=== PATIENT | male | born 1945 | race Caucasian/White ===

== ENCOUNTER → 2021-02-18 15:33 | Outpatient (ROUT) | payer MEDICARE, SELFPAY ==
[2021-02-18 16:14] LABS: Add Manual Diff / Slide Review NO; Basophils Absolute Auto 100 /uL (0-100); Basophils Percent Auto 1.2 % (0-2); Eosinophils Absolute Auto 100 /uL (0-450); Eosinophils Percent Auto 1.6 % (2-4); Hematocrit 46.3 % (41-53); Hemoglobin 15.7 g/dL (13.5-17.5); Lymphocytes Absolute Auto 800 /uL (1100-4500); Mean Corpuscular HGB Conc 33.8 % (30-36); Mean Corpuscular Hemoglobin 33.9 PG (26-34); Mean Corpuscular Volume 100.5 fL (80-100); Monocytes Absolute Auto 600 /uL (0-900); Monocytes Percent Auto 13.5 % (3-14); Neutrophils Absolute Auto 3100 /uL (1500-7000); Neutrophils Percent Auto 65.7 % (50-75); Platelet Count 165 X10^3/uL (150-400); Red Blood Cell Count 4.61 X10^6/uL (4.5-5.9); Red Cell Distribution Width 13.7 % (11.6-14.8); White Blood Cell Count 4.7 X10^3/uL (4.5-11.0)
[2021-02-18 17:30] LABS: Alanine Aminotransferase 26 IU/L (<50); Albumin 3.8 g/dL (3.5-5.0); Albumin Globulin Ratio 1.3 (1.0-2.8); Alkaline Phosphatase 79 U/L (38-126); Aspartate Aminotransferase 41 IU/L (17-59); BUN Creatinine Ratio 31.4 (6-22); Bilirubin Total 1.1 mg/dL (0.2-1.3); Blood Urea Nitrogen 22 mg/dL (9-20); Calcium 9.1 mg/dL (8.4-10.2); Carbon Dioxide 26 mmol/L (22-32); Chloride 103 mmol/L (98-107); Cholesterol 208 mg/dL (140-199); Estimated Glomerular Filt Rate > 60.0 mL/min (>60); Globulin 2.9 g/dL (1.7-4.1); Glucose 104 mg/dL (80-110); HEMOLYSIS 41 (0-50); Magnesium 1.9 mg/dL (1.6-2.3); Potassium 4.7 mmol/L (3.4-5.1); Sodium 135 mmol/L (137-145); Total Protein 6.7 g/dL (6.3-8.2); Triglycerides 34 mg/dL (35-150)
[2021-02-18 17:38] LABS: HDL Cholesterol 117 mg/dL (40-60); LDL Cholesterol Calculated 84 mg/dL (<100)
[2021-02-19 07:34] LABS: PSA Free % 16.8 % (.); PSA, Total 2.2 ng/mL (0.0-4.0)
== END ==
PROVIDERS: Visit Provider Physician Assistant
DX: I48.19 Other persistent atrial fibrillation (principal); J45.20 Mild intermittent asthma, uncomplicated; K22.70 Barrett's esophagus without dysplasia; R60.9 Edema, unspecified; E78.2 Mixed hyperlipidemia; R97.20 Elevated prostate specific antigen [PSA]
CPT/HCPCS: 80053; 80061; 83735; 84153; 84154; 85025

== ENCOUNTER → 2022-02-09 13:12 | Outpatient (CLI) | payer MEDICARE, SELFPAY ==
--- NOTE | 2022-02-09 13:16 | DI.ECHO.S_ITS ---
[facility] +---------+ : : [address] : : : : [id number] : : : : Phone: [phone]+ Echocardiogram Report + + :Name: VIPIN COKER Study Date: 02/09/2022 Height: 69 in : :[facility] ReadingLocation: Weight: 197 lb : : Gender: Male BSA: 2.1 m2 : :: 1945 Age: 76 yrs BP: 138/71 mmHg: :Reason For Study: Atrial fibrillation : :Ordering Physician: JHON, : :BRITTNEY Performed By: Saud Rodriguez : :Referring: BRITTNEY FERREIRA : + + Interpretation Summary The patient was in atrial fibrillation with controlled ventricular rate during the exam. The left ventricle is normal in size and wall thickness. The ejection fraction is estimated to be 55-60%. The right ventricle is normal in size and function. Both atria are severely dilated. There is mild tricuspid regurgitation. The right ventricular systolic pressure is estimated to be at least 27 mmHg based on an estimated right atrial pressure of 3 mm Hg. The ascending aorta is mildly enlarged. Procedure: A two-dimensional transthoracic echocardiogram with color flow and Doppler was performed. The study quality was technically adequate. There is no prior echocardiogram noted for this patient. The patient was in atrial fibrillation with controlled ventricular rate during the exam. Left Ventricle: The left ventricle is normal in size and wall thickness. There is no thrombus. Left ventricular systolic function is normal. The ejection fraction is estimated to be 55-60%. There are no focal wall motion abnormalities. Diastolic function could not be accurately assessed due to atrial fibrillation. Right Ventricle: The right ventricle is normal in size and function. Atria: Both atria are severely dilated. The interatrial septum grossly appears intact with no obvious evidence for an atrial septal defect. Mitral Valve: There is mild mitral annular calcification. The mitral valve leaflets appear moderately thickened, but open well. There is trace mitral regurgitation. Aortic Valve: There is mild aortic valve sclerosis. There is discrete nodular thickening of the non- coronary cusp. There is mildly reduced leaflet mobility. There is no hemodynamically significant valvular aortic stenosis. No aortic regurgitation is present. Tricuspid Valve: The tricuspid valve is normal. There is mild tricuspid regurgitation. The right ventricular systolic pressure is estimated to be at least 27 mmHg based on an estimated right atrial pressure of 3 mm Hg. Pulmonic Valve: The pulmonic valve leaflets are thin and pliable; valve motion is normal. There is mild pulmonic regurgitation. Great Vessels: The aortic root is normal size. The ascending aorta is mildly enlarged. The IVC is of normal diameter and collapses greater than 50% with a sniff. This suggests a low right atrial pressure of 3 mm Hg. Pericardium/ Pleura There is no pericardial effusion. There is an anterior echo-free space consistent with a fat pad. There is no pleural effusion. MMode/2D Measurements & Calculations LVIDd: 4.5 cm LVOT diam: 2.2 cm LVIDs: 2.9 cm Ao root diam: 3.6 cm FS: 35.6 % asc Aorta Diam: 3.8 cm IVSd: 1.0 cm LVPWd: 1.0 cm LV hickey. diameter/BSA (cm/m^2): 2.2 LV sys. diameter/BSA (cm/m^2): 1.4 LA dimension: 4.1 cm RA long axis: 6.4 cm LA A2 area: 32.3 cm2 LA A4 area: 26.7 cm2 LA length (vol): 6.9 cm LA vol: 106.2 ml LA vol index: 51.8 ml/m2 TAPSE_phl: 2.5 cm Doppler Measurements & Calculations Ao V2 max: 93.3 cm/sec LVOT Max Linden: 72.5 cm/sec Ao V2 mean: 68.0 cm/sec LV V1 max P.1 mmHg Ao max P.0 mmHg LV V1 VTI: 14.1 cm Ao mean P.0 mmHg SUELLEN(I,D): 2.7 cm2 Ao V2 VTI: 19.9 cm SUELLEN(V,D): 3.0 cm2 sev ratio: 0.71 SUELLEN indexed to BSA (cm^2/m^2): 1.3 TR max linden: 246.0 cm/sec SV(LVOT): 53.6 ml TR max P.2 mmHg AV VR_phl: 0.78 SUELLEN(VTI)/BSA_phl: 1.3 Reading Physician:02:40 PM
== END ==
PROVIDERS: PCP Physician Assistant; Referring Provider Physician Assistant; Visit Provider Physician Assistant
DX: I07.1 Rheumatic tricuspid insufficiency (principal); I48.19 Other persistent atrial fibrillation; I37.1 Nonrheumatic pulmonary valve insufficiency; I77.89 Other specified disorders of arteries and arterioles; I10 Essential (primary) hypertension
CPT/HCPCS: 93306

== ENCOUNTER 2023-06-14 09:38 | Day surgery (SDC) | payer OTHER, SELFPAY ==
--- NOTE | 2023-06-14 | PATH_ITS ---
[facility] Accession Number: [id number] No. of containers..01 Tissue . 01 Material submitted: . colon - DESCENDING POLYP . 01 Diagnosis: Descending Polyp: Tubular adenoma. [facility] 06/20/2023 1148 Local . 01 Electronically signed: . Pat Nuno MD, Pathologist NPI- [id number] . 01 Gross description: . DESCENDING POLYP: Received in formalin is 1 fragment(s) of mclean, soft tissue measuring 0.7 x 0.5 x 0.2 cm submitted entirely in 1 cassette(s) /AAY 06/15/2023 2259 Local . 01 Pathologist provided ICD-10: K63.5 . 01 CPT . 483025 Specimen Comment: A courtesy copy of this report has been sent to [phone] Performed at: 01 [facility] [address] [place] [address] [id number] MD Felix Guo MD Phone: [phone]
[2023-06-14] MEDS: LACTATED RINGERS 1,000 ML 150 ML IV (09:50)
[2023-06-14 09:57] VITALS: BP 131/76; PULSE 88; RESP 16; TEMP 36.6; O2SAT 100; BMI 26.9
--- NOTE | 2023-06-14 10:34 | PM.HP.1 ---
History of Present Illness History of Present Illness Date Patient Seen: 06/14/23 Time Patient Seen: 10:34 Chief complaint: SDC Narrative: Jonah is an 78-year-old man who is here for his colonoscopy. His last 1 was in [facility] in 2013 and he believes polyps were removed although it is not reported in the endoscopy note our system. He has had other colonoscopies in the past with polyps removed. [facility] Social History household members: none Smoking Status: Former smoker alcohol intake: current Meds Home Medications and Allergies Home Medications Medication Instructions Recorded Confirmed Type APEX CPAP 03/16/22 03/16/22 History budesonide-formoterol HFA 160 2 puff inhalation BID 03/16/22 06/14/23 History mcg-4.5 mcg/actuation aerosol inhaler (Symbicort) diclofenac sodium 75 mg 75 mg PO BID 03/16/22 06/14/23 History tablet,delayed release diltiazem HCl 120 mg 120 mg PO DAILY 03/16/22 06/14/23 History capsule,extended release 24 hr lansoprazole 30 mg capsule,delayed 30 mg PO DAILY 03/16/22 06/14/23 History release melatonin 10 mg-theanine 5.5 mg 1 tab PO DAILY 03/16/22 06/14/23 History tablet rivaroxaban 20 mg tablet (Xarelto) 20 mg PO DAILY 06/14/23 06/14/23 History Allergies Allergy/AdvReac Type Severity Reaction Status Date / Time No Known Drug Allergies Allergy Verified 06/14/23 10:08 Exam Vital Signs (past 8 hours): - 06/14/23 09:57 Temperature 97.9 F Pulse Rate 88 Respiratory Rate 16 Blood Pressure 131/76 Pulse Oximetry 100 Oxygen Delivery Method Room Air Oxygen Delivery Method Room Air Const General: healthy appearing Assessment & Plan Assessment and plan (1) History of colon polyps: Status: Acute Plan We reviewed the risks and benefits of colonoscopy for a history of polyps and he would like to proceed.
--- NOTE | 2023-06-14 12:01 | PM.OP.COLON ---
Operative Date/Time/Diagnoses Date of procedure: 06/14/23 Time of procedure: 12:01 Pre-op diagnosis: Colon cancer screening Post-op diagnosis: same Procedure & Clinicians Study performed: Colonoscopy Same procedure as scheduled: Yes Surgeon: Dean Grissom Procedure Notes Procedure in detail: Surgeon: Dean Grissom MD Anesthesia: Faheem Cody DO Procedure: The patient was brought to the endoscopy suite, placed in left lateral decubitus position. The patient was connected to monitoring devices. A time-out was performed. Sedation was administered. Once the patient was adequately sedated, a digital rectal exam was performed and was normal. The scope was then inserted and advanced to the cecum where the appendiceal orifice was identified and photographed. The scope was then slowly withdrawn over greater than 6 minutes. The mucosa was thoroughly inspected. There was a 5 mm polyp in the descending colon and was removed with a cold niki snare. The scope was retroflexed in the rectum. No other abnormalities were seen. The scope was straightened and removed. The patient was awakened and brought to recovery. Scope withdrawal time: 8 minutes Sedation time: 28 minutes EBL: 5 mL Findings: 5 mm polyp in the descending colon Post-procedure Disposition: PACU
[2023-06-14 12:03] VITALS: BP 103/67; PULSE 76; RESP 10; TEMP 36.2; O2SAT 96
[2023-06-14 12:08] VITALS: BP 83/61; PULSE 83; RESP 16; O2SAT 96
[2023-06-14 12:13] VITALS: BP 106/68; PULSE 82; RESP 12; O2SAT 100
[2023-06-14 12:25] VITALS: BP 105/64; PULSE 63; RESP 14; TEMP 36.5; O2SAT 100
== END 2023-06-14 12:25 | disposition home or self-care (01) ==
PROVIDERS: PCP Physician Assistant; Referring Provider Surgery; Visit Provider Surgery
PROC: 0DJD8ZZ Inspection of Lower Intestinal Tract, Via Natural or Artificial Opening Endoscopic (ICD-10-PCS; CPT 45378; principal; 2023-06-14 10:45)
DX: Z12.11 Encounter for screening for malignant neoplasm of colon (principal); Z86.010 Personal history of colon polyps; D12.4 Benign neoplasm of descending colon
CPT/HCPCS: 45385; J2704

== ENCOUNTER → 2024-06-04 07:58 | Outpatient (CLI) | payer MEDICARE, SELFPAY ==
--- NOTE | 2024-06-04 08:00 | DI.MRI.S_ITS ---
PROCEDURE: MR PELVIC PROSTATE PROTOCOL INDICATIONS: Elevated PSA TECHNIQUE: Coronal HASTE, axial T1 FSE with fat saturation, 3-plane nonbreath-hold T2 FSE. After the administration of contrast, dynamic axial, delayed axial and coronal VIBE or 2-D FLASH with fat saturation through the pelvis. Diffusion weighted imaging and ADC was performed. COMPARISON: None. FINDINGS: Image quality: Diffusion weighted and dynamic contrast enhanced images are diagnostic. Prostate: 4.4 x 3.4 x 3.3 cm. Estimated volume is 26 cc. No recent PSA provided. Mildly T2 hypointense heterogenous striated appearance of the peripheral zone is commonly seen with current or prior prostatitis, PI-RADS 2. TURP changes. Small BPH nodules also seen (PI-RADS 2). The seminal vesicles appear clear. T2 hyperintense signal is seen in the symmetric distribution at the angle of the seminal vesicle insertions, probably fibrosis. At the right mid gland anterior peripheral zone, there is an 8 x 9 x 6 mm lesion. DWI score is 3. DCE positive. T2 score 3. PI-RADS 4. (01/18, 12/21). Genitourinary system: Trabeculated bladder likely from chronic obstruction. Partially seen dilated distal right ureter. Bowel and peritoneum: No pathologic ascites or small bowel obstruction. Nodes and vessels: No pathologic lymph nodes by size criteria. No aneurysmal vessel identified. Consider prostate PET-CT if targeted biopsies returned positive. Soft tissues: Small fat containing inguinal hernias Bones: There are degenerative changes. No suspicious enhancing bone lesion in the field of view IMPRESSION: PI-RADS 4 lesion in the right anterior peripheral zone. Suspected superimposed sequelae of prostatitis. Trabeculated bladder and partially seen dilated right ureter. Other findings above. Dictated by: Dion Amado M.D. on 06/04/2024 at 10:39 Approved by: Dion Amado M.D. on 06/04/2024 at 10:49
== END ==
PROVIDERS: PCP Physician Assistant; Referring Provider Urology; Visit Provider Urology
DX: N40.2 Nodular prostate without lower urinary tract symptoms (principal); N42.9 Disorder of prostate, unspecified; N32.89 Other specified disorders of bladder; R97.20 Elevated prostate specific antigen [PSA]; K40.90 Unilateral inguinal hernia, without obstruction or gangrene, not specified as recurrent; N28.82 Megaloureter
CPT/HCPCS: 72197; A9579

== ENCOUNTER 2024-06-24 13:42 | Day surgery (SDC) | payer MEDICARE, SELFPAY ==
[2024-06-13 16:13] VITALS: BMI 28.0
[2024-06-24] MEDS: LACTATED RINGERS 1,000 ML 42 ML IV (14:00)
[2024-06-24 14:15] VITALS: BMI 28.0
[2024-06-24 14:25] VITALS: BP 147/87; PULSE 82; RESP 18; TEMP 36.2; O2SAT 100
[2024-06-24] MEDS: LACTATED RINGERS 1,000 ML 21 ML IV (14:32)
--- NOTE | 2024-06-24 20:30 | PM.PREOP ---
Pre-operative Note COVID-19 COVID-19 status: Not tested Interval Note History & Physical reviewed/Exam performed by Physician: Yes Changes to H&P: No
[2024-06-24] MEDS: LIDOCAINE 2% INJ MDV 20ML 20 ML INJ (20:50)
[2024-06-24] MEDS: GENTAMICIN 380 MG in SODIUM CHLORIDE 0.9% 100 ML 109.5 MG IV (20:54)
--- NOTE | 2024-06-24 21:04 | PM.OP.1 ---
Procedure & Clinicians Procedure: Transrectal ultrasound needle biopsy of the prostate Same procedure as scheduled: Yes Indications: This 79-year-old male presents for transrectal ultrasound needle biopsy of the prostate related to an elevated PSA and PI-RADS 4 lesion. A distant history of reported low-grade low volume prostate cancer. Patient recently has had a rising an elevated PSA and then was found to have in the right mid peripheral anterior prostate a PI-RADS 4 lesion. Patient also had a terrible experience with prostate biopsies in the past and thus comes to have this done under anesthetic. Surgeon: Rodri Coleman Click Yes if Unassisted: Yes Anesthesia Type: General Operative Notes Findings: Seminal vesicles in the ampulla vas in normal position configuration and echotexture. The bladder was only partially filled so definitive comment can not be made but that which was seen appeared to be normal. Outlined the prostate was preserved smooth and not irregular. There were few calcifications in the prostate no true hypoechoic lesions and no cysts. Prostate was measured at 23 mL it was previously measured at 26 by MRI. Biopsies were taken in the following fashion on the left in the mid, base and apex 2 samples were taken. On the right at the base and apex 2 samples were taken in the in the right mid peripheral anterior zone 4 samples were taken. Closure Type: not applicable Specimen(s): other (Prostate core biopsies as noted above) Prosthetic devices, grafts, tissues, transplants, or devices: None Estimated Blood Loss (mL): 5 Blood products transfused: none Procedure in detail: Procedure in detail: After informed consent was obtained, the patient was identified brought to the operating room where he was placed in his supine position on the table anesthesia was induced to maintain. Ensuring an adequate level of anesthesia the patient was transitioned to the lithotomy position. Once in lithotomy position after ensuring an adequate level of anesthesia, time-out and administration of gentamicin the ultrasound probe was inserted and serial images taken through the transverse and longitudinal planes of the prostate with customer retention representative images collected via the image collection device. As the just after the ultrasound probe was inserted a periprostatic block was performed with 2% lidocaine. Prostate was measured and biopsies were then taken as noted above. With the samples in hand the ultrasound probe was removed and there appeared to be a small hematoma by digital rectal exam and pressure was held by 3 minutes by the clock no further bleeding was noted. At this point the patient was awakened having tolerated the procedure well he was transferred to the postanesthesia care unit for recovery once he has recovered he will be discharged to home there were no complications. Complications: none Post-operative Condition: stable Disposition: PACU Plan for aftercare: Discharged to home after recovery follow up in my office with biopsy results.
[2024-06-24 21:06] VITALS: BP 138/86; PULSE 73; RESP 16; TEMP 36.5; O2SAT 97
[2024-06-24 21:14] VITALS: BP 140/99; PULSE 79; RESP 19; O2SAT 97
== END 2024-06-24 21:49 | disposition home or self-care (01) ==
PROVIDERS: PCP Physician Assistant; Referring Provider Urology; Visit Provider Urology
PROC: 0VJ43ZZ Inspection of Prostate and Seminal Vesicles, Percutaneous Approach (ICD-10-PCS; CPT 55876; principal; 2024-06-24 15:30)
DX: R97.20 Elevated prostate specific antigen [PSA] (principal); R93.89 Abnormal findings on diagnostic imaging of other specified body structures; Z85.46 Personal history of malignant neoplasm of prostate; J45.909 Unspecified asthma, uncomplicated; Z87.891 Personal history of nicotine dependence
CPT/HCPCS: 55700; 76942; J2405; J2704; J3010